=== PATIENT | male | born 2005 | race Caucasian/White ===

== ENCOUNTER → 2024-11-26 | Outpatient (CLI) | payer OTHER ==
[~2024-11-26] MED LIST: ALBU2SYA; ALBU90OI INH; AMOCLA250S PO; AMOCLASUA PO; AMOX50SU PO; CEPH125SU PO; CLOT1TC TOP; CODACEE120 PO; CODGUAEL; NYSTRI30T TOP; PHENO20EL; PRED10 PO; SULTRIEL PO
[2024-11-28 08:17] LABS: CERULOPLASMIN 22 mg/dL (15-30)
[2024-11-28 08:53] LABS: HEPATITIS B SURFACE ANTIBODY <3.10 IU/L
[2024-11-28 12:41] LABS: HEPATITIS A ANTIBODIES, TOTAL Positive (Negative)
[2024-11-28 12:51] LABS: HEPATITIS A ANTIBODY, IGM Negative (Negative); HEPATITIS C AB CIA INTERP Negative (Negative); HEPATITIS C ANTIBODY CIA INDEX <0.02 IV
== END ==
LOC: LAB SHORT 11:41 → LAB 11:41
PROVIDERS: Student in an Organized Health Care Education/Training Program
DX: R41.89 Other symptoms and signs involving cognitive functions and awareness (principal); R74.01 Elevation of levels of liver transaminase levels
CPT/HCPCS: 80074; 82390; 82728; 83036; 86708